=== PATIENT | female | born 1955 | race Caucasian/White ===

== ENCOUNTER → 2017-12-19 | Outpatient (CLI) | payer OTHER ==
[~2017-12-19] MED LIST: ALLEGRA ALLERG180 MG PO; COMPAZINE10 MG PO; COZAAR100 MG PO; DEXAMETHASONE1 MG PO; LEVOTHYROXIN0.088 MG PO; LIPITOR 20 MG T20 M1 PO; LOMOTIL TABLET1 EACH PO; LOSARTAN-HCTZ1 EAC3 PO; METAMUCIL PACK3.4 GM PO; NORCO 5-325 TA1 EACH PO; NORVASC 5 MG TAB5 MG PO; OMEPRAZOLE 20 M20 MG PO; SYNTHROID75 MCG PO; VYTORIN 10-201 EACH PO; ZOFRAN8 MG PO; ZOLOFT100 MG PO
--- NOTE | 2017-12-19 11:43 | 2DMMODE ---
[place] [address] 2 D/M-MODE ECHOCARDIOGRAM Name: CECELIA CONNOLLY Room: [facility]#: [id number] Admission: 12/19/17 Attend Phys: Mohan Cordoba Discharge: Date of : 55 Date of Service: 12/19/17 1142 Report #: [id number] THIS REPORT FOR: //name// APPROVED REPORT Study performed: 12/19/2017 09:24:31 EXAM: Comprehensive 2D, Doppler, and color-flow Echocardiogram Patient Location: Out-Patient Status: routine BSA: 2.23 HR: 70 bpm BP: 140/85 mmHg Other Information Study Quality: Adequate Indications Chemo 2D Dimensions LVEF(%): 71.49 (>50%) IVSd: 11.42 (7-11mm) LVOT Diam: 20.09 (18-24mm) LVDd: 50.66 mm PWd: 10.48 (7-11mm) Ascending Ao: 29.12 (22-36mm) LVDs: 29.92 (25-40mm) Aortic Root: 27.63 mm Diggs's LVEF: 71.49 % Mitral Valve E/A Ratio: 1.15 MV Decel. Time: 200.98 ms MV E Max Tate.: 0.88 m/s MV PHT: 58.28 ms MVA (PHT): 3.77 cm2 Pulmonary Valve PV Peak Tate.: 1.08 m/s PV Peak Gr.: 4.71 mmHg Tricuspid Valve TR Peak Gr.: 20.45 mmHg RVSP: 25.45 mmHg Left Ventricle The left ventricle is normal size. There is [place] [address] 2 D/M-MODE ECHOCARDIOGRAM Name: CECELIA CONNOLLY Robel Room: [facility]#: [id number] Admission: 12/19/17 Attend Phys: Mohan Cordoba Discharge: Date of : 55 Date of Service: 12/19/17 1142 Report #: [id number] motion. There is normal left ventricular wall thickness. Left ventricular systolic function is normal. The left ventricular ejection fraction is within the normal range. LVEF is 60%. The left ventricular diastolic function is normal. Right Ventricle The right ventricle is normal size. The right ventricular systolic function is normal. Atria The left atrium size is normal. The right atrium size is normal. Aortic Valve Mild aortic valve sclerosis. No aortic regurgitation is present. There is no aortic valvular stenosis. Mitral Valve Mild mitral annular calcification. Trace mitral regurgitation. No evidence of mitral valve stenosis. Tricuspid Valve The tricuspid valve is normal in structure. Mild tricuspid regurgitation. The RVSP is _25.5 mmHg. Pulmonic Valve The pulmonary valve is normal in structure. There is no pulmonic valvular regurgitation. Great Vessels The aortic root is normal in size. IVC is normal in size and collapses with >50% inspiration Pericardium There is no pericardial effusion. <Conclusion> The left ventricle is normal size. There is normal left ventricular wall thickness. Left ventricular systolic function is normal. The left ventricular ejection fraction is within the normal range. LVEF is 60%. The left ventricular diastolic function is normal. The right ventricle is normal size. The left [place] [address] 2 D/M-MODE ECHOCARDIOGRAM Name: CECELIA CONNOLLY Room: [facility]#: [id number] Admission: 12/19/17 Attend Phys: Mohan Cordoba Discharge: Date of : 55 Date of Service: 12/19/17 1142 Report #: [id number] Mild aortic valve sclerosis. No aortic regurgitation is present. There is no aortic valvular stenosis. Mild mitral annular calcification. Trace mitral regurgitation. No evidence of mitral valve stenosis. The tricuspid valve is normal in structure. Mild tricuspid regurgitation. The RVSP is _25.5 mmHg. IVC is normal in size and collapses with >50% inspiration There is no pericardial effusion. There is normal LV segmental wall motion. <ELECTRONICALLY SIGNED> By: Vaughn Wasserman MD, FACC 12/19/17 1142 114 114 Vaughn Wasserman MD, FACC /INF
== END ==
LOC: M.CRD 08:48
DX: C50.912 Malignant neoplasm of unspecified site of left female breast (principal); Z17.0 Estrogen receptor positive status [ER+]